=== PATIENT | male | born 1945 | race Caucasian/White ===

== ENCOUNTER 2022-02-03 16:27 | Inpatient (IN) | payer MEDICARE, BC ==
[~2022-02-03] VITALS: Ht 170.2 cm; Wt 78.0 kg
--- NOTE | 2022-02-03 16:40 | NUR ---
BIBRELATIVE C/O RECTAL BLEEDING X 3 DAYS,GETTING HEAVIER. AMBULATORY, PLACED ON BED, AAOX4, BREATHING EVEN AND UNLABORED SATURATING AT 98%RA.
--- NOTE | 2022-02-03 16:50 | NUR ---
iv line started, blood drawn and sent to lab.
[2022-02-03] MEDS ORDERED: IV NS 0.9% 1,000 ML BAG IV ONE ×2 (17:00→20:30)
--- NOTE | 2022-02-03 17:00 | NUR ---
PATIENT TAKEN TO CT VIA LEONARDO
[2022-02-03 17:57] LABS: BASOPHILS % (AUTO) 0.3 % (0.0-2.0); HEMATOCRIT 26 % (39-51); HEMOGLOBIN 8.6 g/dL (13.5-17.5); LYMPHOCYTES # (AUTO) 2.3 K/uL (0.8-4.8); LYMPHOCYTES % (AUTO) 23.7 % (20.0-44.0); MEAN CORPUSCULAR HGB CONC 34 g/dl (31.0-36.0); MEAN CORPUSCULAR VOLUME 90 fL (80-96); MONOCYTES # (AUTO) 0.7 K/uL (0.1-1.30); MONOCYTES % (AUTO) 7.5 % (2.0-12.0); NEUTROPHILS # (AUTO) 6.6 K/uL (1.8-8.9); NEUTROPHILS % (AUTO) 67.5 % (43.0-81.0); PLATELET COUNT (AUTO) 158 K/uL (150-450); RED BLOOD CELL COUNT(AUTO) 2.86 MIL/uL (4.5-6.0); WHITE BLOOD COUNT (AUTO) 9.8 K/uL (4.3-11.0)
--- NOTE | 2022-02-03 18:08 | NUR ---
SWAB FOR COVID19 SENT TO LAB
[2022-02-03 18:12] LABS: CALCIUM, SERUM 8.2 mg/dL (8.5-10.1); CREATININE 1.2 mg/dL (0.6-1.3); POTASSIUM 3.9 mmol/L (3.5-5.1)
[2022-02-03 18:18] LABS: ALBUMIN 2.9 g/dL (3.4-5.0); BILIRUBIN,DIRECT 0.1 mg/dL (0.0-0.2); BILIRUBIN,TOTAL 0.3 mg/dL (0.2-1.0); TOTAL PROTEIN, SERUM 5.6 g/dL (6.4-8.2)
[2022-02-03] MEDS ORDERED: MORPHINE SULFATE INJ 2 MG/ML DISP.SYRIN IV PRN (21:00)
[2022-02-03] MEDS ORDERED: MAGNESIUM HYDROXIDE 30 ML UDC PO PRN (21:00)
[2022-02-03] MEDS: PANTOPRAZOLE 40 MG VIAL IV SCH (21:00)
[2022-02-03] MEDS ORDERED: MAG HYDROX/AL HYDROX/SIMETH 30 ML UDC PO PRN (21:00)
[2022-02-03] MEDS ORDERED: ACETAMINOPHEN 325 MG TABLET PO PRN (21:00)
[2022-02-03] MEDS ORDERED: ONDANSETRON HCL/PF 4 MG/2 ML VIAL IVP PRN (21:00)
[2022-02-03] MEDS ORDERED: Z GUARD REMEDY 4 OZ OINT TP PRN (21:00)
--- NOTE | 2022-02-03 21:15 | NUR ---
REPORT GIVEN TO HARRIS- CHARGE NURSE ROOM 307 FOR RACHEL
[2022-02-03 21:30] VITALS: BP 108/66
--- NOTE | 2022-02-03 21:30 | NUR ---
STARTED ON BLOOD TRANSFUSION- A POS. AT 77MLS./HR. TEMP-97.9, BP-108/66, VA-85, RR-18, SATS.-99%RA
[2022-02-03 21:45] VITALS: BP 98/62
--- NOTE | 2022-02-03 21:55 | NUR ---
TRANSFERRED TO ROOM ACCOMPANIED BY RN AND EMT WITH FAMILY MEMBER
[2022-02-03 22:10] VITALS: BP 108/56
--- NOTE | 2022-02-03 22:30 | NUR ---
BUSINESS PERFORMANCE MANAGER OPENING NOTE PT TRANSPORTED VIA GURNEY TO UNIT AT THIS TIME. PT FROM HOME ADMITTED TO TELE FROM ER UNDER COMPUTER EDUCATION PROFESSOR QUENTIN FOR ADMITTING DX GI BLEED. A/O X4 AND ABLE TO MAKE NEEDS KNOWN. PT STABLE ON ROOM AIR. NO SOB OR S/S OF RESPIRATORY DISTRESS. BREATHING EVEN AND UNLABORED. ON EXTERNAL ELECTRONIC WARFARE OFFICER READING SR 83 BPM. NO COMPLAINTS OF PAIN OR DISCOMFORT AT THIS TIME. SKIN IS INTACT. IV ACCESS LAC 18 GAUGE, INTACT AND PATENT, RUNNING 1 BAG PRBC STARTED IN ER. PT ORIENTED TO UNIT, STAFF, AND ROOM. PT BELONGINGS ACCOUNTED FOR AND BELONGINGS LIST SIGNED. SAFETY PRECAUTIONS IN PLACE. BED IN LOWEST LOCKED POSITION, HOB ELEVATED, SIDE RAILS UP X2, AND CALL LIGHT AND TABLE WITHIN REACH. ALL NEEDS MET AT THIS TIME.
[2022-02-04] VITALS (10 sets, daily range): BP systolic 98–120; BP diastolic 50–72
--- NOTE | 2022-02-04 00:34 | NUR ---
RN NOTE BLOOD TRANSFUSION COMPLETED AT THIS TIME. NO TRANSFUSION REACTIONS NOTED. VS BP 112/50 HR 87 R 18 TEMP 97.7 O2 SAT 99% ON ROOM AIR.
--- NOTE | 2022-02-04 01:21 | NUR ---
RN NOTE PT PLACED ON DROPLET PRECAUTIONS AT THIS TIME PER ORDER FROM AKIN SAAVEDRA. WILL TRANSFER TO GEN PENDING BED AVAILABILITY. CHARGE NURSE HARRIS AND HATCHERY WORKER DANIKA DAS.
--- NOTE | 2022-02-04 06:01 | NUR ---
ORTHOSTATICS LAYING BP 106/64 HR 87 R 18 TEMP 97.9 O2 SAT 96% ON RA SITTING BP 108/60 HR 98 R 18 TEMP 97.9 O2 SAT 98% ON RA STANDING BP 98/59 HR 110 R 18 TEMP 97.9 O2 SAT 97% ON RA
--- NOTE | 2022-02-04 07:02 | NUR ---
RN NOTE RECEIVED REPORT FROM ANOOP. PT ON RA, TOLERATING WELL. NO S/SX OF ACUTE DISTRESS NOTED. A/O X 4. IV ACCESS NOTED IN LAC, #18g, SL. WILL ENDORSE TO AM SHIFT NURSE.
[2022-02-04 07:04] LABS: BASOPHILS % (AUTO) 0.1 % (0.0-2.0); EOSINOPHILS % (AUTO) 0.8 % (0.0-6.0); HEMATOCRIT 23 % (39-51); HEMOGLOBIN 7.7 g/dL (13.5-17.5); LYMPHOCYTES # (AUTO) 2.9 K/uL (0.8-4.8); MEAN CORPUSCULAR HGB CONC 33 g/dl (31.0-36.0); MEAN CORPUSCULAR VOLUME 90 fL (80-96); MONOCYTES # (AUTO) 0.9 K/uL (0.1-1.30); MONOCYTES % (AUTO) 7.7 % (2.0-12.0); NEUTROPHILS # (AUTO) 7.6 K/uL (1.8-8.9); NEUTROPHILS % (AUTO) 66.4 % (43.0-81.0); PLATELET COUNT (AUTO) 135 K/uL (150-450); RED BLOOD CELL COUNT(AUTO) 2.57 MIL/uL (4.5-6.0); WHITE BLOOD COUNT (AUTO) 11.4 K/uL (4.3-11.0)
[2022-02-04 07:25] LABS: CREATININE 1.1 mg/dL (0.6-1.3); MAGNESIUM 1.9 mg/dL (1.8-2.4); POTASSIUM 3.7 mmol/L (3.5-5.1)
[2022-02-04 07:33] LABS: CALCIUM, SERUM 7.8 mg/dL (8.5-10.1)
[2022-02-04 07:46] LABS: FERRITIN 51 ng/mL (8-388)
[2022-02-04 07:51] LABS: C-REACTIVE PROTEIN < 0.2 mg/dL (0.0-0.9)
--- NOTE | 2022-02-04 07:56 | NUR ---
CHIEF GUARD OPENING NOTE Patient in bed, awake. A/O x 4, able to make needs known. On room air, breathing evenly and unlabored. No SOB or s/s of distress noted. IV access on LAC #18 SL, intact and patent. On tele monitoring showing SR with BBB and occasional PVCs. Safety precautions in place: bed in low, locked position; siderails up x 2; call light within reach. Will continue to monitor.
[2022-02-04 08:51] LABS: THYROID STIMULATING HORMONE 1.921 uIU/mL (0.358-3.74)
[2022-02-04] MEDS ORDERED: IV NS 0.9% 1,000 ML IV ONE (09:00)
[2022-02-04] MEDS: PANTOPRAZOLE 40 MG VIAL IV SCH (09:03)
--- NOTE | 2022-02-04 12:51 | NUR ---
RN NOTE Received order for blood transfusion. Consent in the chart. Picked up blood from blood bank. Patient VS as follows: BP 105/65, HR 86, RR 19, Temp 98.2, SPO2 97% on room air. Blood product verified by 2 RNs. Blood transfusion started.
--- NOTE | 2022-02-04 13:06 | NUR ---
RN NOTE Patient remains stable with the ff VS: BP 117/72, HR 89, RR 18, Temp 98.1, SPO2 99% on room air. No signs of transfusion reactions noted. Will continue to monitor.
--- NOTE | 2022-02-04 14:06 | NUR ---
RN NOTE Patient remains stable with the ff VS: BP 120/66, HR 84, RR 19, Temp 98.2, SPO2 98% on room air. No signs of transfusion reactions noted. Will continue to monitor.
--- NOTE | 2022-02-04 15:56 | NUR ---
RN NOTE Blood transfusion ended. Patient remains stable with VS: BP 110/58, HR 85, RR 20, Temp 98.4, SPO2 97% on room air. No transfusion reactions noted.
--- NOTE | 2022-02-04 17:30 | NUR ---
DISCHARGE NOTE Received order for discharge. Patient is A/O x 4, able to make needs known. Stable on room air, breathing evenly and unlabored. No SOB or s/s of distress noted. Discharge instructions given both verbally and in written for, patient verbalized understanding. All belongings accounted for, belonging sheet signed. IV access removed, catheter tip intact. Pressure dressing applied, no signs of bleeding noted. Patient left in stable condition with , Oneil, via private car.
== END 2022-02-04 18:09 | disposition home or self-care (01) | DRG 378 ==
LOC: ER 16:29 → MED 20:37 → TELE 02-04 → TELE1 02-04 06:48
PROVIDERS: ADMIT Nurse Practitioner Family; ATTEND Internal Medicine
PROC: 30233N1 Transfusion of Nonautologous Red Blood Cells into Peripheral Vein, Percutaneous Approach (ICD-10-PCS; principal; 2022-02-03)
DX: K57.31 Diverticulosis of large intestine without perforation or abscess with bleeding (principal); D62 Acute posthemorrhagic anemia; E44.0 Moderate protein-calorie malnutrition; G90.8 Other disorders of autonomic nervous system; E88.09 Other disorders of plasma-protein metabolism, not elsewhere classified; E83.51 Hypocalcemia; R73.9 Hyperglycemia, unspecified; Z68.26 Body mass index [BMI] 26.0-26.9, adult; Z20.822 Contact with and (suspected) exposure to COVID-19
CPT/HCPCS: 36415; 71045-TC; 80048-TC; 80076-TC; 82378; 82728-TC; 83540-TC; 83615-TC; 83690-TC; 83735-TC; 84100-TC; 84443-TC; 85025-TC; 85378-TC; 85730-TC; 86140-TC; 86850-TC; 87081-TC; 93307-TC; 93880-TC; C9113; C9803; G0378; J7030; J7040; P9016